=== PATIENT | male | born 1930 | race Caucasian/White ===

== ENCOUNTER 2016-11-04 09:08 | Inpatient (IN) | payer MEDICARE, OTHER ==
[~2016-11-04] VITALS: Ht 172.7 cm; Wt 115.9 kg
[~2016-11-04 09:08] MED LIST: PHENYLEPHRINE 10 MG/ML VIAL IV ONE; PROPOFOL 50ML PER ML IV ONE
[2016-11-04] MEDS ORDERED: OPTIRAY 350 100 ML VIAL HMH IV ONE (09:09)
[2016-11-04] MEDS ORDERED: SODIUM CHLORIDE 0.9% 1,000 ML ONE (09:38)
[2016-11-04] MEDS ORDERED: PIPER/TAZO 3.375 GM PYXIS ONE (13:16)
[2016-11-04] MEDS ORDERED: SODIUM CHLORIDE 0.9% 100 ML IV ONE (13:17)
[2016-11-04] MEDS ORDERED: ED METRONIDAZOLE IV 100 ML IV ONE (13:17)
[2016-11-04] MEDS ORDERED: LEVOFLOXACIN 750 MG/150 ML 150 ML IV SCH (13:20)
[2016-11-04] MEDS ORDERED: MORPHINE 2 MG/ML SYR IV PRN (13:20)
[2016-11-04] MEDS ORDERED: SALINE FLUSH 10 ML FLUSH PRN (13:20)
[2016-11-04 15:58] VITALS: BP_SYST 100; BP_SYST 110; RESP 20; TEMP 97.4
[2016-11-04 15:59] VITALS: Ht 172.7 cm; Wt 115.9 kg
[2016-11-04] MEDS ORDERED: METRONIDAZOLE 500MG/100ML 100 ML IV SCH (16:00)
[2016-11-04] MEDS: METRONIDAZOLE 500MG/100ML 100 ML IV SCH ×2 (16:59→23:53)
[2016-11-04] MEDS: ACETAMINOPHEN 325 MG TAB PO PRN (19:30)
[2016-11-04 19:56] VITALS: BP_SYST 119; RESP 18; TEMP 99
[2016-11-04] MEDS: SALINE FLUSH 10 ML FLUSH SCH (20:11)
[2016-11-04] MEDS: EMYCIN OP OINT 3.5 GM EYE LT SCH ×2 (20:11→23:53)
[2016-11-05 04:24] VITALS: BP_SYST 124; RESP 16; TEMP 98.2
[2016-11-05] MEDS: SODIUM CHLORIDE 0.9% FLUSH BAG 500 ML IV SCH (05:25)
[2016-11-05] MEDS: EMYCIN OP OINT 3.5 GM EYE LT SCH ×5 (05:25→21:21)
[2016-11-05 07:37] VITALS: BP_SYST 140; RESP 16; TEMP 98.5
[2016-11-05] MEDS: SALINE FLUSH 10 ML FLUSH SCH ×2 (08:46→21:25)
[2016-11-05] MEDS: ACETAMINOPHEN 325 MG TAB PO PRN (08:46)
[2016-11-05] MEDS: LEVOFLOXACIN 750 MG/150 ML 150 ML IV SCH (08:47)
[2016-11-05] MEDS ORDERED: MISSING DOSE XX ONE (08:50)
[2016-11-05] MEDS: METRONIDAZOLE 500MG/100ML 100 ML IV SCH ×2 (09:58→15:46)
[2016-11-05 11:58] VITALS: BP_SYST 125; RESP 16; TEMP 98.7
[2016-11-05 15:55] VITALS: BP_SYST 127; RESP 16; TEMP 97.3
[2016-11-05 19:28] VITALS: BP_SYST 106; RESP 18; TEMP 98.7
[2016-11-05] MEDS ORDERED: PHARMACY TO DOSE VANCOMYCIN IV SCH (21:30)
[2016-11-05] MEDS: VANCOMYCIN 1,500 MG in SODIUM CHLORIDE 0.9% 250 ML IV SCH (22:12)
[2016-11-05 23:19] VITALS: BP_SYST 125; RESP 18; TEMP 97.1
[2016-11-06] MEDS: METRONIDAZOLE 500MG/100ML 100 ML IV SCH ×3 (00:05→15:40)
[2016-11-06] MEDS: EMYCIN OP OINT 3.5 GM EYE LT SCH ×6 (00:05→19:50)
[2016-11-06 04:21] VITALS: BP_SYST 126; RESP 18; TEMP 97.6
[2016-11-06] MEDS: SODIUM CHLORIDE 0.9% FLUSH BAG 500 ML IV SCH (05:52)
[2016-11-06 07:50] VITALS: BP_SYST 119; RESP 16; TEMP 98.4
[2016-11-06] MEDS: SALINE FLUSH 10 ML FLUSH SCH ×2 (08:09→19:51)
[2016-11-06] MEDS: LEVOFLOXACIN 750 MG/150 ML 150 ML IV SCH (08:09)
[2016-11-06] MEDS: VANCOMYCIN 1,500 MG in SODIUM CHLORIDE 0.9% 250 ML IV SCH ×2 (11:04→21:55)
[2016-11-06] MEDS ORDERED: PEG/E-LYTE 4,000 ML BTL PO ONE (11:15)
[2016-11-06 11:41] VITALS: BP_SYST 105; RESP 16; TEMP 97.9
[2016-11-06] MEDS ORDERED: MISSING DOSE XX ONE ×2 (12:35→15:45)
[2016-11-06 16:03] VITALS: BP_SYST 121; RESP 16; TEMP 98.2
[2016-11-06] MEDS: ONDANSETRON 4 MG VIAL IV PRN (19:51)
[2016-11-06 20:11] VITALS: BP_SYST 104; RESP 18; TEMP 97.7
[2016-11-06] MEDS: GUAIFENESIN ER 600 MG TABCR PO PRN (21:55)
[2016-11-06 23:08] VITALS: BP_SYST 104; RESP 18; TEMP 98.5
[2016-11-07] VITALS (12 sets, daily range): BP systolic 97–118; RESP 16–21; TEMP 97.8–98.8
[2016-11-07] MEDS: METRONIDAZOLE 500MG/100ML 100 ML IV SCH ×3 (00:19→19:59)
[2016-11-07] MEDS: EMYCIN OP OINT 3.5 GM EYE LT SCH ×6 (00:22→20:00)
[2016-11-07] MEDS ORDERED: PEG/E-LYTE 4,000 ML BTL PO ONE (04:00)
[2016-11-07] MEDS: SODIUM CHLORIDE 0.9% FLUSH BAG 500 ML IV SCH (04:17)
[2016-11-07] MEDS: ONDANSETRON 4 MG VIAL IV PRN ×2 (04:20→15:11)
[2016-11-07] MEDS: SALINE FLUSH 10 ML FLUSH SCH ×2 (09:02→20:05)
[2016-11-07] MEDS: LEVOFLOXACIN 750 MG/150 ML 150 ML IV SCH (10:03)
[2016-11-07] MEDS: METOPROLOL TART 50 MG TAB PO SCH ×2 (10:04→20:51)
[2016-11-07] MEDS: ALLOPURINOL 100 MG TAB PO SCH (10:04)
[2016-11-07] MEDS ORDERED: DUONEB INH ONE (10:07)
[2016-11-07] MEDS: DUONEB INH SCH ×3 (10:27→23:35)
[2016-11-07] MEDS: VANCOMYCIN 1,500 MG in SODIUM CHLORIDE 0.9% 250 ML IV SCH ×2 (11:48→22:06)
[2016-11-07] MEDS ORDERED: MISSING DOSE XX ONE (15:10)
[2016-11-07] MEDS: CETIRIZINE 10 MG TAB PO SCH (20:50)
[2016-11-08] MEDS: METRONIDAZOLE 500MG/100ML 100 ML IV SCH ×4 (00:38→23:14)
[2016-11-08] MEDS: EMYCIN OP OINT 3.5 GM EYE LT SCH ×7 (00:38→23:14)
[2016-11-08 03:44] VITALS: BP_SYST 97; RESP 18; TEMP 97.8
[2016-11-08] MEDS: SODIUM CHLORIDE 0.9% FLUSH BAG 500 ML IV SCH (04:11)
[2016-11-08 07:13] VITALS: BP_SYST 100; RESP 20; TEMP 97.8
[2016-11-08] MEDS: DUONEB INH SCH ×3 (07:26→23:03)
[2016-11-08] MEDS: SALINE FLUSH 10 ML FLUSH SCH ×2 (08:47→21:00)
[2016-11-08] MEDS: ALLOPURINOL 100 MG TAB PO SCH (08:48)
[2016-11-08] MEDS: METOPROLOL TART 50 MG TAB PO SCH ×2 (08:48→21:01)
[2016-11-08] MEDS: ONDANSETRON 4 MG VIAL IV PRN (08:52)
[2016-11-08] MEDS: VANCOMYCIN 1,500 MG in SODIUM CHLORIDE 0.9% 250 ML IV SCH (10:31)
[2016-11-08 12:00] VITALS: BP_SYST 93; RESP 20; TEMP 98
[2016-11-08] MEDS: LEVOFLOXACIN 750 MG/150 ML 150 ML IV SCH (13:25)
[2016-11-08 15:34] VITALS: BP_SYST 99; RESP 20; TEMP 97.2
[2016-11-08 19:30] VITALS: BP_SYST 92; RESP 18; TEMP 97.4
[2016-11-08] MEDS: CETIRIZINE 10 MG TAB PO SCH (21:01)
[2016-11-08 22:35] VITALS: BP_SYST 106; RESP 20; TEMP 98.5
[2016-11-09] VITALS (7 sets, daily range): BP systolic 95–116; RESP 18–20; TEMP 97.2–98.1
[2016-11-09] MEDS: EMYCIN OP OINT 3.5 GM EYE LT SCH ×6 (04:53→23:28)
[2016-11-09] MEDS: SODIUM CHLORIDE 0.9% FLUSH BAG 500 ML IV SCH (05:55)
[2016-11-09] MEDS: METRONIDAZOLE 500MG/100ML 100 ML IV SCH ×2 (08:25→16:31)
[2016-11-09] MEDS: METOPROLOL TART 50 MG TAB PO SCH ×2 (08:27→20:23)
[2016-11-09] MEDS: ALLOPURINOL 100 MG TAB PO SCH (08:28)
[2016-11-09] MEDS: DUONEB INH SCH ×3 (08:33→22:57)
[2016-11-09] MEDS: SALINE FLUSH 10 ML FLUSH SCH ×2 (10:10→20:24)
[2016-11-09] MEDS: LEVOFLOXACIN 750 MG/150 ML 150 ML IV SCH (10:10)
[2016-11-09] MEDS: ONDANSETRON 4 MG VIAL IV PRN (15:12)
[2016-11-09] MEDS: CETIRIZINE 10 MG TAB PO SCH (20:23)
[2016-11-09] MEDS: METRONIDAZOLE 500 MG TAB PO SCH (20:24)
[2016-11-10 02:53] VITALS: BP_SYST 117; RESP 20; TEMP 97.6
[2016-11-10] MEDS: EMYCIN OP OINT 3.5 GM EYE LT SCH ×4 (03:27→16:00)
[2016-11-10] MEDS: SODIUM CHLORIDE 0.9% FLUSH BAG 500 ML IV SCH (03:28)
[2016-11-10] MEDS: DUONEB INH SCH ×2 (06:41→14:08)
[2016-11-10 07:25] VITALS: BP_SYST 116; RESP 18; TEMP 97.5
[2016-11-10] MEDS: ONDANSETRON 4 MG VIAL IV PRN ×2 (08:51→17:16)
[2016-11-10] MEDS: METRONIDAZOLE 500 MG TAB PO SCH ×3 (08:52→21:04)
[2016-11-10] MEDS: SALINE FLUSH 10 ML FLUSH SCH ×2 (08:52→21:03)
[2016-11-10] MEDS: ALLOPURINOL 100 MG TAB PO SCH (08:53)
[2016-11-10] MEDS: METOPROLOL TART 50 MG TAB PO SCH ×2 (08:53→21:04)
[2016-11-10 11:09] VITALS: BP_SYST 96; RESP 20; TEMP 97.2
[2016-11-10 15:21] VITALS: BP_SYST 109; RESP 20; TEMP 97.2
[2016-11-10] MEDS ORDERED: DUONEB INH PRN (17:20)
[2016-11-10 19:38] VITALS: BP_SYST 111; RESP 20; TEMP 97.2
[2016-11-10] MEDS: CETIRIZINE 10 MG TAB PO SCH (21:04)
[2016-11-10 22:51] VITALS: BP_SYST 92; RESP 18; TEMP 97.2
[2016-11-10] MEDS ORDERED: MISSING DOSE XX ONE (23:00)
[2016-11-10] MEDS: GUAIFENESIN ER 600 MG TABCR PO PRN (23:56)
[2016-11-11] MEDS: SODIUM CHLORIDE 0.9% FLUSH BAG 500 ML IV SCH (05:35)
[2016-11-11 07:37] VITALS: BP_SYST 99; RESP 20; TEMP 97.4
[2016-11-11] MEDS: METOPROLOL TART 50 MG TAB PO SCH (08:46)
[2016-11-11] MEDS: ALLOPURINOL 100 MG TAB PO SCH (08:46)
[2016-11-11] MEDS: METRONIDAZOLE 500 MG TAB PO SCH ×3 (08:46→19:35)
[2016-11-11] MEDS: SALINE FLUSH 10 ML FLUSH SCH ×2 (08:51→19:33)
[2016-11-11] MEDS ORDERED: LEVOFLOXACIN 750 MG TAB PO SCH (09:00)
[2016-11-11 11:36] VITALS: BP_SYST 87; RESP 20; TEMP 96.8
[2016-11-11] MEDS: ONDANSETRON 4 MG VIAL IV PRN ×3 (12:45→23:56)
[2016-11-11] MEDS ORDERED: SODIUM CHLORIDE 0.9% 1,000 ML IV SCH (15:30)
[2016-11-11 15:41] VITALS: BP_SYST 107; RESP 20; TEMP 97.7
[2016-11-11 19:27] VITALS: BP_SYST 87; RESP 18; TEMP 98
[2016-11-11] MEDS ORDERED: MISSING DOSE XX ONE (19:30)
[2016-11-11] MEDS: CETIRIZINE 10 MG TAB PO SCH (19:37)
[2016-11-11 22:54] VITALS: BP_SYST 115; RESP 18; TEMP 98.3
[2016-11-12 03:44] VITALS: BP_SYST 115; RESP 18; TEMP 98
[2016-11-12] MEDS: SODIUM CHLORIDE 0.9% FLUSH BAG 500 ML IV SCH (06:00)
[2016-11-12 07:53] VITALS: BP_SYST 112; RESP 18; TEMP 97.6
[2016-11-12] MEDS: ALLOPURINOL 100 MG TAB PO SCH (09:06)
[2016-11-12] MEDS: SALINE FLUSH 10 ML FLUSH SCH ×2 (09:06→20:08)
[2016-11-12] MEDS: ONDANSETRON 4 MG VIAL IV PRN (09:07)
[2016-11-12] MEDS: GUAIFENESIN ER 600 MG TABCR PO PRN ×2 (09:07→20:09)
[2016-11-12 12:10] VITALS: BP_SYST 115; RESP 18; TEMP 97.1
[2016-11-12] MEDS: Furosemide 40 MG TAB PO SCH (14:37)
[2016-11-12 15:36] VITALS: BP_SYST 115; RESP 20; TEMP 97.6
[2016-11-12 19:21] VITALS: BP_SYST 127; RESP 20; TEMP 97.5
[2016-11-12] MEDS: CETIRIZINE 10 MG TAB PO SCH (20:09)
[2016-11-12 22:49] VITALS: BP_SYST 119; RESP 18; TEMP 97.9
[2016-11-13 04:49] VITALS: BP_SYST 120; RESP 18; TEMP 98.1
[2016-11-13] MEDS: SODIUM CHLORIDE 0.9% FLUSH BAG 500 ML IV SCH (05:33)
[2016-11-13 07:35] VITALS: BP_SYST 124; RESP 18; TEMP 97.5
[2016-11-13] MEDS: ALLOPURINOL 100 MG TAB PO SCH (08:57)
[2016-11-13] MEDS: GUAIFENESIN ER 600 MG TABCR PO PRN (08:57)
[2016-11-13] MEDS: Furosemide 40 MG TAB PO SCH ×2 (08:57→17:48)
[2016-11-13] MEDS: ONDANSETRON 4 MG VIAL IV PRN ×2 (08:58→17:48)
[2016-11-13] MEDS: SALINE FLUSH 10 ML FLUSH SCH ×2 (08:58→20:25)
[2016-11-13] MEDS ORDERED: PROMETHAZINE 25 MG/ML VIAL IV PRN (11:10)
[2016-11-13 11:37] VITALS: BP_SYST 122; RESP 18; TEMP 97.7
[2016-11-13 15:39] VITALS: BP_SYST 101; RESP 18; TEMP 97.4
[2016-11-13 19:31] VITALS: BP_SYST 101; RESP 18; TEMP 97.9
[2016-11-13] MEDS: CETIRIZINE 10 MG TAB PO SCH (20:26)
[2016-11-13 22:53] VITALS: BP_SYST 123; RESP 18; TEMP 97.7
[2016-11-14] VITALS (9 sets, daily range): BP systolic 109–129; RESP 18–20; TEMP 97.2–98.3
[2016-11-14] MEDS: SODIUM CHLORIDE 0.9% FLUSH BAG 500 ML IV SCH (05:22)
[2016-11-14] MEDS ORDERED: MISSING DOSE XX ONE (07:40)
[2016-11-14] MEDS: Furosemide 40 MG TAB PO SCH ×2 (08:35→16:10)
[2016-11-14] MEDS: ALLOPURINOL 100 MG TAB PO SCH (08:35)
[2016-11-14] MEDS: ONDANSETRON 4 MG VIAL IV PRN ×2 (08:35→16:54)
[2016-11-14] MEDS: SALINE FLUSH 10 ML FLUSH SCH ×2 (08:36→20:59)
[2016-11-14] MEDS: METOPROLOL TART 25 MG TAB PO SCH ×2 (13:09→21:00)
[2016-11-14] MEDS ORDERED: WARFARIN 4 MG TAB PO SCH (16:00)
[2016-11-14] MEDS: CETIRIZINE 10 MG TAB PO SCH (21:00)
[2016-11-15] MEDS: ONDANSETRON 4 MG VIAL IV PRN (01:27)
[2016-11-15] MEDS: SODIUM CHLORIDE 0.9% FLUSH BAG 500 ML IV SCH (04:42)
[2016-11-15 05:13] VITALS: BP_SYST 123; RESP 20; TEMP 98.4
[2016-11-15 07:31] VITALS: BP_SYST 107; RESP 20; TEMP 97.7
[2016-11-15] MEDS ORDERED: Furosemide 40 MG TAB PO SCH (09:00)
[2016-11-15] MEDS: SALINE FLUSH 10 ML FLUSH SCH (10:44)
[2016-11-15] MEDS: METOPROLOL TART 25 MG TAB PO SCH (10:45)
[2016-11-15] MEDS: ALLOPURINOL 100 MG TAB PO SCH (10:45)
[2016-11-15 10:59] VITALS: BP_SYST 102; RESP 16; TEMP 97.1
[2016-11-15 11:30] VITALS: BP_SYST 107; RESP 20; TEMP 97.7
[2016-11-15] MEDS ORDERED: WARFARIN 4 MG TAB PO SCH (16:00)
[2016-11-16] MEDS ORDERED: WARFARIN 4 MG TAB PO SCH (16:00)
== END 2016-11-15 13:34 | DRG 871 ==
LOC: ENRESERVDT → ENRESERVTM → ER 09:08 → EMR 13:18 → UNDOADMIN 13:18 → EMR 13:19 → 4THW 15:37 → EMR 15:37 → 4NT 11-06 22:37
PROVIDERS: ADMIT Internal Medicine; ATTEND Internal Medicine
PROC: 0DBN8ZX Excision of Sigmoid Colon, Via Natural or Artificial Opening Endoscopic, Diagnostic (ICD-10-PCS; principal; 2016-11-07 12:00)
DX: A41.1 Sepsis due to other specified staphylococcus (principal); N17.0 Acute kidney failure with tubular necrosis; I50.32 Chronic diastolic (congestive) heart failure; K61.1 Rectal abscess; N10 Acute pyelonephritis; I11.0 Hypertensive heart disease with heart failure; E66.01 Morbid (severe) obesity due to excess calories; J44.9 Chronic obstructive pulmonary disease, unspecified; K62.89 Other specified diseases of anus and rectum; R65.20 Severe sepsis without septic shock; K57.30 Diverticulosis of large intestine without perforation or abscess without bleeding; Z68.38 Body mass index [BMI] 38.0-38.9, adult; K21.9 Gastro-esophageal reflux disease without esophagitis; Z79.01 Long term (current) use of anticoagulants; N40.0 Benign prostatic hyperplasia without lower urinary tract symptoms; I25.10 Atherosclerotic heart disease of native coronary artery without angina pectoris; E78.00 Pure hypercholesterolemia, unspecified; Z87.891 Personal history of nicotine dependence; F41.9 Anxiety disorder, unspecified; D12.3 Benign neoplasm of transverse colon; N20.0 Calculus of kidney; I48.2 Chronic atrial fibrillation
CPT/HCPCS: 36415; 71010; 74177; 80048; 80053; 80069; 80202; 81001; 81003; 82274; 82436; 82550; 82553; 83605; 83630; 83690; 83735; 83880; 84300; 84439; 84443; 84484; 85025; 85610; 85652; 85730; 86141; 86255; 87040; 87045; 87046; 87077; 87088; 87177; 87493; 87804; 88305; 93005; 94640; 94799; 96361; 96365; 96367; 99232; 99233; 99239